=== PATIENT | male | born 1965 | race Hispanic/Latino ===

== ENCOUNTER 2018-08-01 11:45 | Emergency (ER) | payer OTHER ==
[2018-08-01 11:59] VITALS: BMI 29.5
[2018-08-01 12:01] VITALS: O2SAT 98
--- NOTE | 2018-08-01 12:24 | ED PDOC ---
Arrival/HPI - General Historian: Patient - History of Present Illness Narrative History of Present Illness (Text): 08/01/18 12:23 Carl Shea is a 53 year old male smoker, with no significant past medical history, who presents to the ED brought in by EMS accompanied by co-worker status post near-syncopal episode. Patient states he was sitting at a computer at work when he stood up and felt increasingly dizzy. Patient notes he collapsed to the ground after standing up and describes dizziness as room-spinning. Patient reports 1 episode of vomiting following the near-syncopal episode and is currently complaining of nausea, generalized weakness, and dizziness. Patient denies any taking any medications, history of recent illness, substance abuse, urinary/bowel incontinence, headache, chest pain, shortness of breath, abdominal pain, diarrhea, back pain, neck pain, or any other complaints. Time/Duration: Prior to Arrival Symptom Onset: Gradual Symptom Course: Unchanged Activities at Onset: Light Context: Work Past Medical History - Provider Review Nursing Documentation Reviewed: Yes Family/Social History - Physician Review Nursing Documentation Reviewed: Yes Family/Social History: Unknown Family HX Allergies/Home Meds Allergies/Adverse Reactions: Allergies Penicillins Allergy (Verified 08/01/18 12:20) ANGIOEDEMA Review of Systems - Physician Review All systems were reviewed & negative as marked: Yes - Review of Systems Constitutional: Normal. absent: Fevers Eyes: Normal ENT: Normal Respiratory: Normal. absent: SOB, Cough Cardiovascular: Other (+near-syncope) Gastrointestinal: Nausea, Vomiting. absent: Abdominal Pain Genitourinary Male: Normal. absent: Dysuria, Frequency, Hematuria, Urinary Output Changes Musculoskeletal: Normal. absent: Back Pain, Neck Pain Skin: Normal. absent: Rash Neurological: Dizziness. absent: Headache Psychiatric: Normal Physical Exam Vital Signs Reviewed: Yes Vital Signs Temp Pulse Resp BP Pulse Ox 08/01/18 11:59 97.0 F L 84 16 127/83 98 Temperature: Afebrile Blood Pressure: Normal Pulse: Regular Respiratory Rate: Normal Appearance: Positive for: Well-Appearing, Non-Toxic, Comfortable Pain Distress: None Mental Status: Positive for: Lethargic, other (oriented x3) Finger Stick Blood Glucose: 130 - Systems Exam Head: Present: Atraumatic, Normocephalic Pupils: Present: PERRL Extroacular Muscles: Present: EOMI. No: Other (no nystagmus) Conjunctiva: Present: Normal Mouth: Present: Moist Mucous Membranes Neck: Present: Normal Range of Motion Respiratory/Chest: Present: Clear to Auscultation, Good Air Exchange. No: Respiratory Distress, Accessory Muscle Use Cardiovascular: Present: Regular Rate and Rhythm, Normal S1, S2. No: Murmurs Abdomen: Present: Tenderness (Mild epigastric tenderness). No: Distention, Peritoneal Signs Back: Present: Normal Inspection Upper Extremity: Present: Normal Inspection. No: Cyanosis, Edema Lower Extremity: Present: Normal Inspection. No: Edema Neurological: Present: GCS=15, CN II-XII Intact (Normal facial symmetry), Speech Normal, Motor Func Grossly Intact, Normal Sensory Function, Normal Cerebellar Funct, Other (3) Skin: Present: Warm (3/5 Motor strength in bilateral upper and lower extremities), Dry, Normal Color. No: Rashes Psychiatric: Present: Alert, Oriented x 3, Normal Insight, Normal Concentration Medical Decision Making ED Course and Treatment: 08/01/18 12:23 Impression 53 year old male presents s/p near-syncopal episodes with generalized weakness, nausea, and dizziness. Differential Diagnoses Include But Are Not Limited To: --Peripheral Vertigo(BPPV, Vestibular Neuritis) --Vasovagal Syncope --Orthostatic Hypotension Plan --Labs --CTH --Reglan --Antivert --IV Fluids --UA --uds --Reassess & Disposition Progress Notes 08/01/18 12:40 Patient noted to refuse Reglan and Antivert. He reports feeling better 08/01/18 13:37 CTH shows no acute intracranial findings. Pending urinalaysis - Lab Interpretations Lab Results: 08/01/18 12:20 08/01/18 12:20 Lab Results 08/01/18 12:20: Sodium 138, Potassium 3.7, Chloride 105, Carbon Dioxide 22, Anion Gap 15, BUN 19, Creatinine 0.9, Est GFR ( Amer) > 60, Est GFR (Non- Af Amer) > 60, Random Glucose 123 H, Calcium 9.6, Magnesium 1.8, Total Bilirubin 0.4, AST 31, ALT 29, Alkaline Phosphatase 58, Troponin I < 0.01, Total Protein 8.1, Albumin 4.4, Globulin 3.7, Albumin/Globulin Ratio 1.2, Lipase 109 08/01/18 12:20: WBC 11.8 H, RBC 4.27, Hgb 13.1 L, Hct 39.2 L, MCV 91.8, MCH 30.7, MCHC 33.4, RDW 12.9, Plt Count 257, MPV 10.0, Neut % (Auto) 69.7 H, Lymph % (Auto) 22.8, [place] % (Auto) 6.2 H, Eos % (Auto) 1.1 L, Baso % (Auto) 0.2, Lymph # (Auto) 2.7, [place] # (Auto) 0.7 H, Eos # (Auto) 0.1, Baso # (Auto) 0.02, Absolute Neuts (auto) 8.21 H 08/01/18 12:04: POC Glucose (mg/dL) 130 H I have reviewed the lab results: Yes - RAD Interpretation Narrative RAD Interpretations (Text): CT Head: HEMORRHAGE: No intracranial hemorrhage. BRAIN: No mass effect or edema. No atrophy or chronic microvascular ischemic changes. VENTRICLES: Unremarkable. No hydrocephalus. CALVARIUM: Unremarkable. PARANASAL SINUSES: Unremarkable as visualized. No significant inflammatory changes. There is a fluid level in the right maxillary sinus consistent with sinusitis. MASTOID AIR CELLS: Unremarkable as visualized. No inflammatory changes. OTHER FINDINGS: None. IMPRESSION: No acute intra cranial findings 08/01/18 13:50 CXR: LUNGS: No active pulmonary disease. PLEURA: No significant pleural effusion identified, no pneumothorax apparent. CARDIOVASCULAR: No aortic atherosclerotic calcification present. Normal cardiac size. No pulmonary vascular congestion. OSSEOUS STRUCTURES: No significant abnormalities. VISUALIZED UPPER ABDOMEN: Normal. OTHER FINDINGS: None. IMPRESSION: No active disease. Platform Man: Radiologist - EKG Interpretation EKG Interpretation (Text): EKG: ED Physician ordered, reviewed, and independently interpreted the EKG. Time Interpreted: 12:04 Rate: 84 BPM Rhythm: NSR Interpretation: No ST elevations. No T-wave inversions. Interpreted by ED Physician: Yes Type: 12 lead EKG - Medication Orders Current Medication Orders: 08/01/18 13:37 Discontinued Medications Sodium Chloride (Sodium Chloride 0.9%) 1,000 mls @ 999 mls/hr IV .Q1H1M STA Stop: 08/01/18 13:26 Last Admin: 08/01/18 12:40 Dose: 999 mls/hr eMAR Start Stop Document 08/01/18 12:40 [facility] (Rec: 08/01/18 12:40 [facility]-[id number]) Intravenous Solution Start Date 08/01/18 Start Time 12:40 End Date 08/01/18 End time 13:40 Total Infusion Time 60 Meclizine HCl (Antivert) 25 mg PO STAT STA Stop: 08/01/18 12:26 Last Admin: 08/01/18 12:40 Dose: Not Given Non-Admin Reason: Patient Refused Metoclopramide HCl (Reglan) 10 mg IVP STAT STA Stop: 08/01/18 12:26 Last Admin: 08/01/18 12:40 Dose: Not Given Non-Admin Reason: Patient Refused - Scribe Statement The provider has reviewed the documentation as recorded by the Scribe Jessenia Valdez All medical record entries made by the Scribe were at my direction and personally dictated by me. I have reviewed the chart and agree that the record accurately reflects my personal performance of the history, physical exam, medical decision making, and the department course for this patient. I have also personally directed, reviewed, and agree with the discharge instructions and disposition. Disposition/Present on Arrival - Present on Arrival Any Indicators Present on Arrival: No History of DVT/PE: No History of Uncontrolled Diabetes: No Urinary Catheter: No History of Decub. Ulcer: No - Disposition Have Diagnosis and Disposition been Completed?: No Diagnosis: Vertigo Disposition: HOME/ ROUTINE Disposition Time: 14:42 Patient Plan: Discharge Condition: IMPROVED Discharge Instructions (ExitCare): Vertigo (a Type of Dizziness) (DC) Print Language: ALBAN[place] Additional Instructions: All medical record entries made by the Scribe were at my direction and personally dictated by me. I have reviewed the chart and agree that the record accurately reflects my personal performance of the history, physical exam, medical decision making, and the department course for this patient. I have also personally directed, reviewed, and agree with the discharge instructions and disposition. Please follow up in clinic within 3-5 days Only take your Antivert when symptoms occur Prescriptions: Meclizine [Antivert] 12.5 mg PO PRN PRN #12 tab PRN Reason: Motion Sickness Metoclopramide HCl [Reglan] 5 mg PO Q6H #12 tablet Referrals: Saniya Noland MD [Medical Doctor] - Follow up with primary [facility] [Outside] - Follow up with primary Forms: [employer] (Salvadorean), WORK NOTE
[2018-08-01] MEDS ORDERED: Sodium Chloride 0.9% 1,000 ML IV STA (12:26)
[2018-08-01 12:42] LABS: BASO # 0.02 K/mm3 (0.0-2.0); BASO % 0.2 % (0.0-3.0); EOS # 0.1 (0.0-0.7); EOS % 1.1 % (1.5-5.0); HEMOGLOBIN 13.1 g/dL (14.0-18.0); LYMPH # 2.7 (1.2-3.4); LYMPH % 22.8 % (22.0-35.0); MEAN CELL VOLUME 91.8 fl (80.0-105.0); MEAN CORPUSCULAR HEMOGLOBIN 30.7 pg (25.0-35.0); MEAN CORPUSCULAR HGB CONC 33.4 g/dl (31.0-37.0); MONO # 0.7 (0.1-0.6); MONO % 6.2 % (1.0-6.0); RBC 4.27 10^6/uL (3.5-6.1); RED CELL DISTRIBUTION WIDTH 12.9 % (11.5-14.5); WHITE BLOOD COUNT 11.8 10^3/uL (4.5-11.0)
[2018-08-01 12:51] LABS: ALB/GLOB RATIO 1.2 (1.1-1.8); ALBUMIN 4.4 g/dL (3.0-4.8); ALT/SGPT 29 U/L (7-56); AST/SGOT 31 U/L (17-59); BLOOD UREA NITROGEN 19 mg/dL (7-21); CALCIUM 9.6 mg/dL (8.4-10.5); GFR NON-AFRICAN AMERICAN > 60; LIPASE 109 U/L (23-300)
[2018-08-01 13:03] LABS: TROPONIN I < 0.01 ng/mL
--- NOTE | 2018-08-01 13:30 | CT ---
Date of service: 08/01/2018 PROCEDURE: CT HEAD WITHOUT CONTRAST. HISTORY: headache COMPARISON: None available. TECHNIQUE: Axial computed tomography images were obtained through the head/brain without intravenous contrast. Radiation dose: Total exam DLP = 1056.01 mGy-cm. This CT exam was performed using one or more of the following dose reduction techniques: Automated exposure control, adjustment of the mA and/or kV according to patient size, and/or use of iterative reconstruction technique. FINDINGS: HEMORRHAGE: No intracranial hemorrhage. BRAIN: No mass effect or edema. No atrophy or chronic microvascular ischemic changes. VENTRICLES: Unremarkable. No hydrocephalus. CALVARIUM: Unremarkable. PARANASAL SINUSES: Unremarkable as visualized. No significant inflammatory changes. There is a fluid level in the right maxillary sinus consistent with sinusitis. MASTOID AIR CELLS: Unremarkable as visualized. No inflammatory changes. OTHER FINDINGS: None. IMPRESSION: No acute intra cranial findings
--- NOTE | 2018-08-01 13:45 | RAD ---
Date of service: 08/01/2018 HISTORY: syncope COMPARISON: No prior. FINDINGS: LUNGS: No active pulmonary disease. PLEURA: No significant pleural effusion identified, no pneumothorax apparent. CARDIOVASCULAR: No aortic atherosclerotic calcification present. Normal cardiac size. No pulmonary vascular congestion. OSSEOUS STRUCTURES: No significant abnormalities. VISUALIZED UPPER ABDOMEN: Normal. OTHER FINDINGS: None. IMPRESSION: No active disease.
[2018-08-01 16:08] VITALS: BP 122/69; PULSE 72; RESP 18; TEMP 98
--- NOTE | 2018-08-01 23:16 | CARD ---
APPROVED REPORT Date of service: 08/01/2018 EKG Measurement Heart [id number] <Conclusion> Sinus rhythm with 1st degree AV block Otherwise normal ECG
== END 2018-08-01 15:25 | disposition home or self-care (01) ==
LOC: ED 11:45
DX: R42 Dizziness and giddiness (principal)
CPT/HCPCS: 70450; 71045; 80053; 82948; 83690; 83735; 84484; 85025; 93005; 96360; 99285; J7030